=== PATIENT | male | born 1945 | race Native Hawaiian/Other Pacific Islander ===

== ENCOUNTER 2018-09-20 15:34 | Outpatient (CLI) | payer BC, OTHER | END 2018-09-20 23:38 | disposition home or self-care (01) | LOC: RAD 15:34 | DX: M79.641 Pain in right hand (principal); M25.531 Pain in right wrist ==

== ENCOUNTER 2019-02-20 14:47 | Emergency (ER) | payer BC, OTHER ==
[~2019-02-20] VITALS: Ht 172.7 cm; Wt 83.9 kg
[2019-02-20 15:06] VITALS: TEMP 97.7
[2019-02-20 16:52] VITALS: BP 136/78
== END 2019-02-20 16:52 | disposition home or self-care (01) ==
LOC: ED 14:47
DX: S39.012A Strain of muscle, fascia and tendon of lower back, initial encounter (principal); W19.XXXA Unspecified fall, initial encounter; Y93.89 Activity, other specified; Y92.89 Other specified places as the place of occurrence of the external cause
CPT/HCPCS: 96372; 99283; J1885